=== PATIENT | male | born 1945 | race Caucasian/White ===

== ENCOUNTER 2022-11-01 09:11 | Emergency (ER) | payer BC, OTHER ==
[2022-11-01 09:26] VITALS: BP 152/86; PULSE 109; RESP 18; TEMP 98; BMI 23.5
[2022-11-01] MEDS ORDERED: LIDOCAINE 5% TOPICAL PATCH TP ONE (09:47)
[2022-11-01] MEDS ORDERED: METHOCARBAMOL 500 MG TABLET PO ONE (09:47)
[2022-11-01] MEDS ORDERED: KETOROLAC TROMETHAMINE 30 MG/1 ML VIAL IM ONE (09:47)
[2022-11-01] MEDS ORDERED: KETOROLAC TROMETHAMINE 30 MG/1 ML VIAL ONE (10:02)
[2022-11-01] MEDS ORDERED: LIDOCAINE 5% TOPICAL PATCH ONE (10:02)
[2022-11-01] MEDS ORDERED: METHOCARBAMOL 500 MG TABLET ONE (10:02)
[2022-11-01] MEDS ORDERED: ONDANSETRON 4 MG/2 ML VIAL IVPUSH ONE (13:52)
[2022-11-01] MEDS ORDERED: ONDANSETRON *ODT* 4 MG TABLET SL ONE (14:12)
[2022-11-01] MEDS ORDERED: ONDANSETRON *ODT* 4 MG TABLET ONE (14:22)
[2022-11-01] MEDS ORDERED: LIDOCAINE PATCH REMOVAL MC ONE (22:00)
== END 2022-11-01 18:03 | disposition home or self-care (01) ==
LOC: JER 09:11
PROC: 3E0233Z Introduction of Anti-inflammatory into Muscle, Percutaneous Approach (ICD-10-PCS; principal; 2022-11-01)
DX: M54.50 Low back pain, unspecified (principal); G89.29 Other chronic pain
CPT/HCPCS: 72131-TC; 96372; 99284-25; Q0162

== ENCOUNTER 2022-11-10 07:10 | Emergency (ER) | payer BC, OTHER ==
[2022-11-10] MEDS ORDERED: LIDOCAINE 5% TOPICAL PATCH TP ONE (07:20)
[2022-11-10] MEDS ORDERED: KETOROLAC TROMETHAMINE 30 MG/1 ML VIAL IM ONE (07:26)
[2022-11-10] MEDS ORDERED: KETOROLAC TROMETHAMINE 15 MG/ML VIAL IM ONE ×2 (07:37→16:28)
[2022-11-10 07:43] VITALS: BMI 23.5
[2022-11-10] MEDS ORDERED: LIDOCAINE 5% TOPICAL PATCH ONE (08:21)
[2022-11-10] MEDS ORDERED: KETOROLAC TROMETHAMINE 15 MG/ML VIAL ONE ×2 (08:21→16:31)
[2022-11-10 09:55] LABS: BASO % 0.3 % (0-2.0); EOS % 0.6 % (0-4.5); HEMATOCRIT 44.8 % (35.4-49); HEMOGLOBIN 14.9 GM/dL (11.7-16.9); LYMPH % 7.9 % (8-40); MCH 30.5 pg (25.7-33.7); MCHC 33.3 g/dl (32.0-35.9); MEAN CELL VOLUME 91.7 fl (80-96); MEAN PLT VOLUME 8.6 fl (7.5-11.1); MONO % 6.2 % (3.8-10.2); PLATELET COUNT 411 10^3/uL (134-434); RBC 4.88 M/mm3 (4.00-5.60); RDW 13.4 % (11.9-15.9); WHITE BLOOD COUNT 12.8 K/mm3 (4.0-10.0)
[2022-11-10] MEDS ORDERED: ACETAMINOPHEN 1000 MG/100 ML BAG IVPB ONE (10:01)
[2022-11-10] MEDS ORDERED: morphine CARPU-JECT 2 MG/1 ML DISP.SYRIN IVPUSH ONE (10:02)
[2022-11-10 10:12] LABS: CALCIUM 9.9 mg/dL (8.5-10.1)
[2022-11-10 10:13] LABS: ALBUMIN 3.7 g/dl (3.4-5.0); BLOOD UREA NITROGEN 17.6 mg/dL (7-18)
[2022-11-10 10:16] LABS: CREATININE 0.8 mg/dL (0.55-1.3)
[2022-11-10 10:17] LABS: TOT PROT 7.2 g/dl (6.4-8.2)
[2022-11-10 10:34] LABS: BILIRUBIN,TOTAL 0.2 mg/dL (0.2-1)
[2022-11-10] MEDS ORDERED: ACETAMINOPHEN INJECTION 100 ML IVPB ONE (10:56)
[2022-11-10 15:00] VITALS: RESP 20
[2022-11-10 17:40] VITALS: BP 140/90; PULSE 104; TEMP 98.9
[2022-11-10] MEDS ORDERED: LIDOCAINE PATCH REMOVAL MC ONE (22:00)
== END 2022-11-10 17:52 ==
LOC: JER 07:10
PROC: 3E033NZ Introduction of Analgesics, Hypnotics, Sedatives into Peripheral Vein, Percutaneous Approach (ICD-10-PCS; principal; 2022-11-10)
PROC: 3E0233Z Introduction of Anti-inflammatory into Muscle, Percutaneous Approach (ICD-10-PCS; 2022-11-10)
PROC: 3E0233Z Introduction of Anti-inflammatory into Muscle, Percutaneous Approach (ICD-10-PCS; 2022-11-10)
PROC: 3E033NZ Introduction of Analgesics, Hypnotics, Sedatives into Peripheral Vein, Percutaneous Approach (ICD-10-PCS; 2022-11-10)
DX: M54.50 Low back pain, unspecified (principal); Z11.52 Encounter for screening for COVID-19
CPT/HCPCS: 36415; 80053; 85025; 96372; 96374; 96375; 99284-25; C9803-CS; U0003; U0005

== ENCOUNTER 2022-11-13 03:31 | Inpatient (IN) | payer BC ==
[2022-11-13] MEDS ORDERED: LIDOCAINE 5% TOPICAL PATCH TP ONE (04:33)
[2022-11-13] MEDS ORDERED: KETOROLAC TROMETHAMINE 15 MG/ML VIAL IVPUSH ONE (04:35)
[2022-11-13] MEDS ORDERED: KETOROLAC TROMETHAMINE 15 MG/ML VIAL ONE ×2 (04:53→12:28)
[2022-11-13] MEDS ORDERED: LIDOCAINE 5% TOPICAL PATCH ONE (04:53)
[2022-11-13 05:41] LABS: BASO % 0.5 % (0-2.0); EOS % 1.3 % (0-4.5); HEMATOCRIT 44.2 % (35.4-49); LYMPH % 10.9 % (8-40); MCH 31.7 pg (25.7-33.7); MEAN CELL VOLUME 93.1 fl (80-96); MEAN PLT VOLUME 8.9 fl (7.5-11.1); MONO % 7.2 % (3.8-10.2); NEUT % 80.1 % (42.8-82.8); PLATELET COUNT 465 10^3/uL (134-434); RBC 4.75 M/mm3 (4.00-5.60); RDW 13.6 % (11.9-15.9); WHITE BLOOD COUNT 12.2 K/mm3 (4.0-10.0)
[2022-11-13] MEDS ORDERED: ACETAMINOPHEN 325 MG TABLET (FP) PO PRN (05:41)
[2022-11-13 05:54] LABS: CHLORIDE 105 mmol/L (98-107); SODIUM 134 mmol/L (136-145)
[2022-11-13 05:56] LABS: ALBUMIN 3.3 g/dl (3.4-5.0); CALCIUM 9.5 mg/dL (8.5-10.1)
[2022-11-13 05:57] LABS: BLOOD UREA NITROGEN 14.8 mg/dL (7-18); CO2 29 mmol/L (21-32); GLUCOSE,RANDOM 111 mg/dL (74-106)
[2022-11-13 06:00] LABS: CREATININE 0.7 mg/dL (0.55-1.3)
[2022-11-13 06:01] LABS: BILIRUBIN,TOTAL 0.4 mg/dL (0.2-1); TOT PROT 7.2 g/dl (6.4-8.2)
[2022-11-13 06:02] LABS: ALK PHOS 109 U/L (45-117)
[2022-11-13] MEDS ORDERED: morphine CARPU-JECT 4 MG/1 ML DISP.SYRIN IVPUSH ONE (06:05)
[2022-11-13] MEDS ORDERED: morphine SULFATE 4 MG/ML VIAL ONE (06:06)
[2022-11-13 06:29] LABS: ANION GAP 0 MMOL/L (8-16); SGOT/AST 107 U/L (15-37); SGPT/ALT 33 U/L (13-61)
[2022-11-13 08:37] LABS: CALCIUM 9.4 mg/dL (8.5-10.1)
[2022-11-13 08:38] LABS: ALBUMIN 3.3 g/dl (3.4-5.0); BLOOD UREA NITROGEN 15.6 mg/dL (7-18)
[2022-11-13 08:41] LABS: CREATININE 0.7 mg/dL (0.55-1.3)
[2022-11-13 08:42] LABS: BILIRUBIN,TOTAL 0.3 mg/dL (0.2-1)
[2022-11-13 08:43] LABS: TOT PROT 6.3 g/dl (6.4-8.2)
[2022-11-13] MEDS ORDERED: KETOROLAC TROMETHAMINE 15 MG/ML VIAL IVPUSH PRN (10:50)
[2022-11-13] MEDS ORDERED: GABAPENTIN 100 MG CAPSULE ONE (12:28)
[2022-11-13] MEDS: GABAPENTIN 100 MG CAPSULE PO SCH ×2 (12:31→21:39)
[2022-11-13] MEDS ORDERED: GABAPENTIN 100 MG CAPSULE PO SCH (14:00)
[2022-11-13 17:59] VITALS: BMI 23.0
[2022-11-13] MEDS: oxyCODONE HCL 5 MG TABLET PO PRN ×2 (18:04→22:05)
[2022-11-13] MEDS: MELATONIN 5 MG TABLETS PO PRN (21:42)
[2022-11-14] MEDS: oxyCODONE HCL 5 MG TABLET PO PRN ×4 (03:44→21:26)
[2022-11-14] MEDS: GABAPENTIN 100 MG CAPSULE PO SCH ×3 (06:50→23:30)
[2022-11-14] MEDS: MAGNESIUM HYDROX 2400MG/30ML ORAL SUSPENSION 30 ML CUP PO PRN (10:55)
[2022-11-14] MEDS: FINASTERIDE 5 MG TABLET (FP) PO SCH (10:56)
[2022-11-14] MEDS: traZODone HCL 50 MG TABLET (FP) PO SCH ×2 (10:56→23:30)
[2022-11-14] MEDS: MULTIVITAMINS THER W-MINERALS COMBO TABLET (FP) PO SCH (10:56)
[2022-11-14] MEDS: ARIPiprazole 5 MG TABLET PO SCH (10:56)
[2022-11-14] MEDS: VENLAFAXINE HCL 75 MG E.R. CAPSULES PO SCH (10:57)
[2022-11-14] MEDS: PANTOPRAZOLE 20 MG TABLET PO SCH (10:58)
[2022-11-14] MEDS ORDERED: morphine SULFATE 4 MG/ML VIAL IVPUSH ONE (22:31)
[2022-11-14] MEDS: ZOLPIDEM TARTRATE 5 MG TABLET PO SCH (23:30)
[2022-11-14] MEDS: MELATONIN 5 MG TABLETS PO PRN (23:30)
[2022-11-15] MEDS ORDERED: TRIMETHOBENZAMIDE HCL 200MG/2ML INJ IM ONE (00:58)
[2022-11-15] MEDS: oxyCODONE HCL 5 MG TABLET PO PRN ×4 (03:09→22:31)
[2022-11-15] MEDS: GABAPENTIN 100 MG CAPSULE PO SCH (05:37)
[2022-11-15 09:11] LABS: BASO % 0.5 % (0-2.0); EOS % 1.6 % (0-4.5); HEMATOCRIT 40.4 % (35.4-49); HEMOGLOBIN 13.3 GM/dL (11.7-16.9); LYMPH % 9.4 % (8-40); MCH 30.2 pg (25.7-33.7); MCHC 32.9 g/dl (32.0-35.9); MEAN PLT VOLUME 8.4 fl (7.5-11.1); MONO % 9.3 % (3.8-10.2); NEUT % 79.2 % (42.8-82.8); PLATELET COUNT 397 10^3/uL (134-434); RBC 4.39 M/mm3 (4.00-5.60); RDW 13.4 % (11.9-15.9)
[2022-11-15] MEDS ORDERED: morphine SULFATE 4 MG/ML VIAL IM ONE (09:15)
[2022-11-15 09:22] LABS: CALCIUM 8.7 mg/dL (8.5-10.1)
[2022-11-15 09:23] LABS: ALBUMIN 2.9 g/dl (3.4-5.0); BLOOD UREA NITROGEN 15.5 mg/dL (7-18)
[2022-11-15 09:26] LABS: CREATININE 0.7 mg/dL (0.55-1.3)
[2022-11-15 09:28] LABS: BILIRUBIN,TOTAL 0.5 mg/dL (0.2-1); TOT PROT 5.6 g/dl (6.4-8.2)
[2022-11-15] MEDS: traZODone HCL 50 MG TABLET (FP) PO SCH ×2 (10:07→22:31)
[2022-11-15] MEDS: MULTIVITAMINS THER W-MINERALS COMBO TABLET (FP) PO SCH (10:07)
[2022-11-15] MEDS: FINASTERIDE 5 MG TABLET (FP) PO SCH (10:07)
[2022-11-15] MEDS: ARIPiprazole 5 MG TABLET PO SCH (10:07)
[2022-11-15] MEDS: PANTOPRAZOLE 20 MG TABLET PO SCH (10:07)
[2022-11-15] MEDS: MAGNESIUM HYDROX 2400MG/30ML ORAL SUSPENSION 30 ML CUP PO PRN (10:07)
[2022-11-15] MEDS: VENLAFAXINE HCL 75 MG E.R. CAPSULES PO SCH (10:07)
[2022-11-15] MEDS: ACETAMINOPHEN 500 MG TABLET (FP) PO SCH ×2 (13:35→19:45)
[2022-11-15] MEDS: GABAPENTIN 300 MG CAPSULE PO SCH ×2 (13:36→22:31)
[2022-11-15] MEDS ORDERED: ACETAMINOPHEN 500 MG TABLET (FP) PO SCH (14:00)
[2022-11-15] MEDS: ZOLPIDEM TARTRATE 5 MG TABLET PO SCH (22:30)
[2022-11-16] MEDS: ACETAMINOPHEN 500 MG TABLET (FP) PO SCH ×4 (03:12→21:09)
[2022-11-16] MEDS: GABAPENTIN 300 MG CAPSULE PO SCH ×3 (06:19→21:11)
[2022-11-16] MEDS: ARIPiprazole 5 MG TABLET PO SCH (09:37)
[2022-11-16] MEDS: VENLAFAXINE HCL 75 MG E.R. CAPSULES PO SCH (09:37)
[2022-11-16] MEDS: MULTIVITAMINS THER W-MINERALS COMBO TABLET (FP) PO SCH (09:37)
[2022-11-16] MEDS: FINASTERIDE 5 MG TABLET (FP) PO SCH (09:37)
[2022-11-16] MEDS: PANTOPRAZOLE 20 MG TABLET PO SCH (09:38)
[2022-11-16] MEDS: MAGNESIUM HYDROX 2400MG/30ML ORAL SUSPENSION 30 ML CUP PO PRN (09:38)
[2022-11-16] MEDS: traZODone HCL 50 MG TABLET (FP) PO SCH ×2 (09:38→21:10)
[2022-11-16] MEDS: oxyCODONE HCL 5 MG TABLET PO PRN ×4 (09:45→23:06)
[2022-11-16] MEDS ORDERED: morphine CARPU-JECT 2 MG/1 ML DISP.SYRIN IM PRN (12:01)
[2022-11-16] MEDS: POLYETHYLENE GLYCOL (HEALTHYLAX) 3350 17 GM PACKET PO SCH ×2 (13:07→21:12)
[2022-11-16] MEDS: ZOLPIDEM TARTRATE 5 MG TABLET PO SCH (21:10)
[2022-11-17] MEDS: ACETAMINOPHEN 500 MG TABLET (FP) PO SCH ×4 (03:10→20:32)
[2022-11-17] MEDS: GABAPENTIN 300 MG CAPSULE PO SCH ×3 (07:29→21:14)
[2022-11-17] MEDS: oxyCODONE HCL 5 MG TABLET PO PRN ×2 (07:29→16:23)
[2022-11-17] MEDS: MULTIVITAMINS THER W-MINERALS COMBO TABLET (FP) PO SCH (09:13)
[2022-11-17] MEDS: POLYETHYLENE GLYCOL (HEALTHYLAX) 3350 17 GM PACKET PO SCH ×2 (09:13→21:15)
[2022-11-17] MEDS: ARIPiprazole 5 MG TABLET PO SCH (09:13)
[2022-11-17] MEDS: VENLAFAXINE HCL 75 MG E.R. CAPSULES PO SCH (09:14)
[2022-11-17] MEDS: PANTOPRAZOLE 20 MG TABLET PO SCH (09:14)
[2022-11-17] MEDS: FINASTERIDE 5 MG TABLET (FP) PO SCH (09:14)
[2022-11-17] MEDS: traZODone HCL 50 MG TABLET (FP) PO SCH ×2 (09:14→21:14)
[2022-11-17] MEDS: ZOLPIDEM TARTRATE 5 MG TABLET PO SCH (21:14)
[2022-11-17] MEDS: LIDOCAINE 5% TOPICAL PATCH TP SCH (22:23)
[2022-11-17] MEDS: LIDOCAINE PATCH REMOVAL MC SCH (22:24)
[2022-11-18] MEDS: ACETAMINOPHEN 500 MG TABLET (FP) PO SCH ×4 (02:13→20:22)
[2022-11-18] MEDS: GABAPENTIN 300 MG CAPSULE PO SCH ×3 (06:02→22:08)
[2022-11-18] MEDS: traZODone HCL 50 MG TABLET (FP) PO SCH ×2 (09:19→22:08)
[2022-11-18] MEDS: ARIPiprazole 5 MG TABLET PO SCH (09:20)
[2022-11-18] MEDS: FINASTERIDE 5 MG TABLET (FP) PO SCH (09:20)
[2022-11-18] MEDS: POLYETHYLENE GLYCOL (HEALTHYLAX) 3350 17 GM PACKET PO SCH ×2 (09:20→22:08)
[2022-11-18] MEDS: MULTIVITAMINS THER W-MINERALS COMBO TABLET (FP) PO SCH (09:20)
[2022-11-18] MEDS: PANTOPRAZOLE 20 MG TABLET PO SCH (09:20)
[2022-11-18] MEDS: LIDOCAINE 5% TOPICAL PATCH TP SCH (09:20)
[2022-11-18] MEDS: VENLAFAXINE HCL 75 MG E.R. CAPSULES PO SCH (09:20)
[2022-11-18] MEDS: MAGNESIUM HYDROX 2400MG/30ML ORAL SUSPENSION 30 ML CUP PO PRN (09:23)
[2022-11-18] MEDS ORDERED: SODIUM PHOSPHATE/NA BIPHOS 133 ML ENEMA RC ONE (13:30)
[2022-11-18] MEDS: DOCUSATE SODIUM 100 MG CAPSULE (FP) PO SCH ×2 (13:34→22:08)
[2022-11-18] MEDS: BACLOFEN 10 MG TABLET (FP) PO SCH ×2 (13:34→22:08)
[2022-11-18] MEDS: NAPROXEN 250 MG TABLET PO SCH ×2 (13:36→22:08)
[2022-11-18] MEDS: ZOLPIDEM TARTRATE 5 MG TABLET PO SCH (22:08)
[2022-11-18] MEDS: LIDOCAINE PATCH REMOVAL MC SCH (22:10)
[2022-11-19] MEDS: ACETAMINOPHEN 500 MG TABLET (FP) PO SCH ×4 (02:57→20:07)
[2022-11-19] MEDS: BACLOFEN 10 MG TABLET (FP) PO SCH ×3 (05:25→22:26)
[2022-11-19] MEDS: DOCUSATE SODIUM 100 MG CAPSULE (FP) PO SCH ×3 (05:26→22:26)
[2022-11-19] MEDS: GABAPENTIN 300 MG CAPSULE PO SCH ×3 (05:26→22:26)
[2022-11-19 09:13] LABS: BASO % 0.3 % (0-2.0); EOS % 2.8 % (0-4.5); HEMATOCRIT 40.3 % (35.4-49); HEMOGLOBIN 13.5 GM/dL (11.7-16.9); LYMPH % 8.8 % (8-40); MCH 30.9 pg (25.7-33.7); MCHC 33.4 g/dl (32.0-35.9); MEAN CELL VOLUME 92.6 fl (80-96); MONO % 6.7 % (3.8-10.2); NEUT % 81.4 % (42.8-82.8); PLATELET COUNT 438 10^3/uL (134-434); RBC 4.35 M/mm3 (4.00-5.60); RDW 13.4 % (11.9-15.9); WHITE BLOOD COUNT 12.4 K/mm3 (4.0-10.0)
[2022-11-19] MEDS: VENLAFAXINE HCL 75 MG E.R. CAPSULES PO SCH (09:23)
[2022-11-19] MEDS: FINASTERIDE 5 MG TABLET (FP) PO SCH (09:23)
[2022-11-19] MEDS: PANTOPRAZOLE 20 MG TABLET PO SCH (09:24)
[2022-11-19] MEDS: traZODone HCL 50 MG TABLET (FP) PO SCH ×2 (09:24→22:26)
[2022-11-19] MEDS: MULTIVITAMINS THER W-MINERALS COMBO TABLET (FP) PO SCH (09:24)
[2022-11-19] MEDS: POLYETHYLENE GLYCOL (HEALTHYLAX) 3350 17 GM PACKET PO SCH ×2 (09:25→22:26)
[2022-11-19] MEDS: LIDOCAINE 5% TOPICAL PATCH TP SCH (09:25)
[2022-11-19 09:46] LABS: BLOOD UREA NITROGEN 19.1 mg/dL (7-18); CALCIUM 9.1 mg/dL (8.5-10.1)
[2022-11-19 09:49] LABS: CREATININE 0.8 mg/dL (0.55-1.3)
[2022-11-19] MEDS: ARIPiprazole 5 MG TABLET PO SCH (11:07)
[2022-11-19] MEDS: NAPROXEN 250 MG TABLET PO SCH ×2 (11:08→22:27)
[2022-11-19] MEDS: ZOLPIDEM TARTRATE 5 MG TABLET PO SCH (22:26)
[2022-11-19] MEDS: LIDOCAINE PATCH REMOVAL MC SCH (22:27)
[2022-11-20] MEDS: ACETAMINOPHEN 500 MG TABLET (FP) PO SCH ×4 (01:27→21:15)
[2022-11-20] MEDS: GABAPENTIN 300 MG CAPSULE PO SCH ×3 (05:44→21:18)
[2022-11-20] MEDS: BACLOFEN 10 MG TABLET (FP) PO SCH ×3 (05:44→21:16)
[2022-11-20] MEDS: DOCUSATE SODIUM 100 MG CAPSULE (FP) PO SCH ×4 (05:44→21:27)
[2022-11-20] MEDS: VENLAFAXINE HCL 75 MG E.R. CAPSULES PO SCH (10:07)
[2022-11-20] MEDS: traZODone HCL 50 MG TABLET (FP) PO SCH ×2 (10:13→21:16)
[2022-11-20] MEDS: MULTIVITAMINS THER W-MINERALS COMBO TABLET (FP) PO SCH (10:13)
[2022-11-20] MEDS: FINASTERIDE 5 MG TABLET (FP) PO SCH (10:13)
[2022-11-20] MEDS: PANTOPRAZOLE 20 MG TABLET PO SCH (10:13)
[2022-11-20] MEDS: LIDOCAINE 5% TOPICAL PATCH TP SCH (10:31)
[2022-11-20] MEDS: POLYETHYLENE GLYCOL (HEALTHYLAX) 3350 17 GM PACKET PO SCH ×2 (10:31→21:17)
[2022-11-20] MEDS: ARIPiprazole 5 MG TABLET PO SCH (10:32)
[2022-11-20] MEDS: NAPROXEN 250 MG TABLET PO SCH ×2 (10:33→21:16)
[2022-11-20] MEDS: oxyCODONE HCL 5 MG TABLET PO PRN ×2 (13:17→18:31)
[2022-11-20] MEDS: LIDOCAINE PATCH REMOVAL MC SCH (21:17)
[2022-11-20] MEDS: ZOLPIDEM TARTRATE 5 MG TABLET PO SCH (21:17)
[2022-11-21] MEDS: ACETAMINOPHEN 500 MG TABLET (FP) PO SCH ×4 (02:59→20:36)
[2022-11-21] MEDS: BACLOFEN 10 MG TABLET (FP) PO SCH ×3 (05:25→21:08)
[2022-11-21] MEDS: GABAPENTIN 300 MG CAPSULE PO SCH ×3 (05:25→21:08)
[2022-11-21] MEDS: DOCUSATE SODIUM 100 MG CAPSULE (FP) PO SCH ×3 (05:26→21:08)
[2022-11-21 08:54] LABS: BASO % 0.4 % (0-2.0); EOS % 1.7 % (0-4.5); HEMATOCRIT 34.3 % (35.4-49); HEMOGLOBIN 11.6 GM/dL (11.7-16.9); LYMPH % 9.6 % (8-40); MCH 30.8 pg (25.7-33.7); MCHC 33.7 g/dl (32.0-35.9); MEAN CELL VOLUME 91.5 fl (80-96); MEAN PLT VOLUME 8.2 fl (7.5-11.1); MONO % 10.5 % (3.8-10.2); NEUT % 77.8 % (42.8-82.8); PLATELET COUNT 395 10^3/uL (134-434); RBC 3.75 M/mm3 (4.00-5.60); RDW 13.5 % (11.9-15.9); WHITE BLOOD COUNT 13.4 K/mm3 (4.0-10.0)
[2022-11-21 08:55] LABS: BLOOD UREA NITROGEN 13.5 mg/dL (7-18); CALCIUM 8.6 mg/dL (8.5-10.1)
[2022-11-21 08:58] LABS: CREATININE 0.6 mg/dL (0.55-1.3)
[2022-11-21] MEDS: ARIPiprazole 5 MG TABLET PO SCH (11:33)
[2022-11-21] MEDS: NAPROXEN 250 MG TABLET PO SCH ×2 (11:35→21:06)
[2022-11-21] MEDS: FINASTERIDE 5 MG TABLET (FP) PO SCH (11:36)
[2022-11-21] MEDS: MULTIVITAMINS THER W-MINERALS COMBO TABLET (FP) PO SCH (11:37)
[2022-11-21] MEDS: VENLAFAXINE HCL 75 MG E.R. CAPSULES PO SCH (11:38)
[2022-11-21] MEDS: traZODone HCL 50 MG TABLET (FP) PO SCH ×2 (11:38→21:08)
[2022-11-21] MEDS: LIDOCAINE 5% TOPICAL PATCH TP SCH (11:39)
[2022-11-21] MEDS: POLYETHYLENE GLYCOL (HEALTHYLAX) 3350 17 GM PACKET PO SCH ×2 (11:39→21:08)
[2022-11-21] MEDS: PANTOPRAZOLE 20 MG TABLET PO SCH (11:39)
[2022-11-21] MEDS: oxyCODONE HCL 5 MG TABLET PO PRN ×2 (14:11→19:38)
[2022-11-21] MEDS: LIDOCAINE PATCH REMOVAL MC SCH (21:08)
[2022-11-21] MEDS: ZOLPIDEM TARTRATE 5 MG TABLET PO SCH (21:08)
[2022-11-22] MEDS: ACETAMINOPHEN 500 MG TABLET (FP) PO SCH ×4 (01:58→20:11)
[2022-11-22] MEDS: oxyCODONE HCL 5 MG TABLET PO PRN ×4 (03:55→23:32)
[2022-11-22] MEDS: GABAPENTIN 300 MG CAPSULE PO SCH ×3 (05:50→21:04)
[2022-11-22] MEDS: DOCUSATE SODIUM 100 MG CAPSULE (FP) PO SCH ×4 (05:50→21:09)
[2022-11-22] MEDS: BACLOFEN 10 MG TABLET (FP) PO SCH ×3 (05:50→21:04)
[2022-11-22] MEDS: PANTOPRAZOLE 20 MG TABLET PO SCH (09:00)
[2022-11-22] MEDS: VENLAFAXINE HCL 75 MG E.R. CAPSULES PO SCH (09:00)
[2022-11-22] MEDS: POLYETHYLENE GLYCOL (HEALTHYLAX) 3350 17 GM PACKET PO SCH ×2 (09:00→21:04)
[2022-11-22] MEDS: traZODone HCL 50 MG TABLET (FP) PO SCH ×2 (09:00→21:03)
[2022-11-22] MEDS: LIDOCAINE 5% TOPICAL PATCH TP SCH (09:02)
[2022-11-22] MEDS: ARIPiprazole 5 MG TABLET PO SCH (09:04)
[2022-11-22] MEDS: NAPROXEN 250 MG TABLET PO SCH ×2 (09:04→21:04)
[2022-11-22] MEDS: MULTIVITAMINS THER W-MINERALS COMBO TABLET (FP) PO SCH (09:06)
[2022-11-22] MEDS: FINASTERIDE 5 MG TABLET (FP) PO SCH (09:06)
[2022-11-22] MEDS: LIDOCAINE PATCH REMOVAL MC SCH (21:04)
[2022-11-22] MEDS: ZOLPIDEM TARTRATE 5 MG TABLET PO SCH (21:04)
[2022-11-22] MEDS: MELATONIN 5 MG TABLETS PO PRN (23:32)
[2022-11-23] MEDS: ACETAMINOPHEN 500 MG TABLET (FP) PO SCH ×4 (01:31→21:36)
[2022-11-23] MEDS: BACLOFEN 10 MG TABLET (FP) PO SCH ×3 (05:29→21:35)
[2022-11-23] MEDS: GABAPENTIN 300 MG CAPSULE PO SCH ×3 (05:29→21:36)
[2022-11-23] MEDS: DOCUSATE SODIUM 100 MG CAPSULE (FP) PO SCH ×3 (05:31→21:36)
[2022-11-23] MEDS: oxyCODONE HCL 5 MG TABLET PO PRN (08:56)
[2022-11-23] MEDS: NAPROXEN 250 MG TABLET PO SCH ×2 (09:32→21:35)
[2022-11-23] MEDS: traZODone HCL 50 MG TABLET (FP) PO SCH ×2 (09:33→21:35)
[2022-11-23] MEDS: PANTOPRAZOLE 20 MG TABLET PO SCH (09:33)
[2022-11-23] MEDS: POLYETHYLENE GLYCOL (HEALTHYLAX) 3350 17 GM PACKET PO SCH ×2 (09:41→21:36)
[2022-11-23] MEDS: MULTIVITAMINS THER W-MINERALS COMBO TABLET (FP) PO SCH (09:41)
[2022-11-23] MEDS: FINASTERIDE 5 MG TABLET (FP) PO SCH (09:41)
[2022-11-23] MEDS: VENLAFAXINE HCL 75 MG E.R. CAPSULES PO SCH (09:41)
[2022-11-23] MEDS: ARIPiprazole 5 MG TABLET PO SCH (09:48)
[2022-11-23] MEDS: LIDOCAINE 5% TOPICAL PATCH TP SCH (09:58)
[2022-11-23 11:22] VITALS: RESP 18
[2022-11-23] MEDS: ZOLPIDEM TARTRATE 5 MG TABLET PO SCH (21:35)
[2022-11-23] MEDS: LIDOCAINE PATCH REMOVAL MC SCH (21:38)
[2022-11-24] MEDS: ACETAMINOPHEN 500 MG TABLET (FP) PO SCH ×4 (01:25→21:31)
[2022-11-24] MEDS: oxyCODONE HCL 5 MG TABLET PO PRN ×3 (01:29→18:45)
[2022-11-24] MEDS: ACETAMINOPHEN 325 MG TABLET (FP) PO PRN ×2 (01:29→09:39)
[2022-11-24] MEDS: MELATONIN 5 MG TABLETS PO PRN (01:30)
[2022-11-24] MEDS: DOCUSATE SODIUM 100 MG CAPSULE (FP) PO SCH ×3 (05:53→21:30)
[2022-11-24] MEDS: GABAPENTIN 300 MG CAPSULE PO SCH ×3 (05:53→21:31)
[2022-11-24] MEDS: BACLOFEN 10 MG TABLET (FP) PO SCH ×3 (05:53→21:31)
[2022-11-24] MEDS: MULTIVITAMINS THER W-MINERALS COMBO TABLET (FP) PO SCH (09:41)
[2022-11-24] MEDS: traZODone HCL 50 MG TABLET (FP) PO SCH ×2 (09:41→21:30)
[2022-11-24] MEDS: PANTOPRAZOLE 20 MG TABLET PO SCH (09:41)
[2022-11-24] MEDS: NAPROXEN 250 MG TABLET PO SCH ×2 (09:41→21:30)
[2022-11-24] MEDS: FINASTERIDE 5 MG TABLET (FP) PO SCH (09:41)
[2022-11-24] MEDS: VENLAFAXINE HCL 75 MG E.R. CAPSULES PO SCH (09:41)
[2022-11-24] MEDS: LIDOCAINE 5% TOPICAL PATCH TP SCH (09:42)
[2022-11-24] MEDS: POLYETHYLENE GLYCOL (HEALTHYLAX) 3350 17 GM PACKET PO SCH ×2 (09:43→21:31)
[2022-11-24] MEDS: ARIPiprazole 5 MG TABLET PO SCH (09:44)
[2022-11-24] MEDS: ZOLPIDEM TARTRATE 5 MG TABLET PO SCH (21:30)
[2022-11-24] MEDS: LIDOCAINE PATCH REMOVAL MC SCH (21:32)
[2022-11-25] MEDS: ACETAMINOPHEN 500 MG TABLET (FP) PO SCH ×4 (02:10→21:25)
[2022-11-25] MEDS: DOCUSATE SODIUM 100 MG CAPSULE (FP) PO SCH ×3 (05:51→21:31)
[2022-11-25] MEDS: GABAPENTIN 300 MG CAPSULE PO SCH ×3 (05:51→21:31)
[2022-11-25] MEDS: BACLOFEN 10 MG TABLET (FP) PO SCH ×3 (05:51→21:31)
[2022-11-25] MEDS: oxyCODONE HCL 5 MG TABLET PO PRN ×2 (06:38→20:31)
[2022-11-25] MEDS: FINASTERIDE 5 MG TABLET (FP) PO SCH (09:07)
[2022-11-25] MEDS: traZODone HCL 50 MG TABLET (FP) PO SCH ×2 (09:07→21:31)
[2022-11-25] MEDS: NAPROXEN 250 MG TABLET PO SCH ×2 (09:07→21:30)
[2022-11-25] MEDS: ARIPiprazole 5 MG TABLET PO SCH (09:07)
[2022-11-25] MEDS: PANTOPRAZOLE 20 MG TABLET PO SCH (09:08)
[2022-11-25] MEDS: VENLAFAXINE HCL 75 MG E.R. CAPSULES PO SCH (09:08)
[2022-11-25] MEDS: POLYETHYLENE GLYCOL (HEALTHYLAX) 3350 17 GM PACKET PO SCH ×2 (09:08→21:31)
[2022-11-25] MEDS: LIDOCAINE 5% TOPICAL PATCH TP SCH (09:08)
[2022-11-25] MEDS: MULTIVITAMINS THER W-MINERALS COMBO TABLET (FP) PO SCH (09:08)
[2022-11-25 09:25] LABS: BASO % 0.7 % (0-2.0); EOS % 4.2 % (0-4.5); HEMATOCRIT 35.6 % (35.4-49); HEMOGLOBIN 12.1 GM/dL (11.7-16.9); MCH 31.1 pg (25.7-33.7); MCHC 33.9 g/dl (32.0-35.9); MEAN CELL VOLUME 91.7 fl (80-96); MEAN PLT VOLUME 7.9 fl (7.5-11.1); MONO % 7.7 % (3.8-10.2); NEUT % 75.4 % (42.8-82.8); PLATELET COUNT 461 10^3/uL (134-434); RBC 3.88 M/mm3 (4.00-5.60); RDW 13.4 % (11.9-15.9)
[2022-11-25 09:35] LABS: BLOOD UREA NITROGEN 15.4 mg/dL (7-18); CALCIUM 8.7 mg/dL (8.5-10.1)
[2022-11-25 09:38] LABS: CREATININE 0.6 mg/dL (0.55-1.3)
[2022-11-25] MEDS ORDERED: ONDANSETRON 8 MG TABLET (FP) PO PRN (12:29)
[2022-11-25] MEDS: FAMOTIDINE 20 MG TABLET PO SCH (13:02)
[2022-11-25] MEDS ORDERED: BENZOCAINE/MENTH/CETYLPYRD CL 1 EACH LOZENGE MM PRN (14:00)
[2022-11-25 14:44] LABS: ALBUMIN 2.3 g/dl (3.4-5.0)
[2022-11-25 14:49] LABS: BILIRUBIN,TOTAL 0.2 mg/dL (0.2-1); TOT PROT 5.6 g/dl (6.4-8.2)
[2022-11-25] MEDS: ACETAMINOPHEN 325 MG TABLET (FP) PO PRN (20:32)
[2022-11-25] MEDS: ZOLPIDEM TARTRATE 5 MG TABLET PO SCH (21:31)
[2022-11-25] MEDS: LIDOCAINE PATCH REMOVAL MC SCH (21:31)
[2022-11-26] MEDS: ACETAMINOPHEN 500 MG TABLET (FP) PO SCH ×4 (02:21→20:00)
[2022-11-26] MEDS: MELATONIN 5 MG TABLETS PO PRN (02:21)
[2022-11-26] MEDS: ONDANSETRON 4 MG TABLET PO PRN ×2 (02:22→23:36)
[2022-11-26] MEDS: GABAPENTIN 300 MG CAPSULE PO SCH ×2 (06:40→13:24)
[2022-11-26] MEDS: BACLOFEN 10 MG TABLET (FP) PO SCH ×2 (06:40→13:24)
[2022-11-26] MEDS: DOCUSATE SODIUM 100 MG CAPSULE (FP) PO SCH ×3 (06:40→21:15)
[2022-11-26] MEDS: NAPROXEN 250 MG TABLET PO SCH ×2 (09:29→21:18)
[2022-11-26] MEDS: LIDOCAINE 5% TOPICAL PATCH TP SCH (09:29)
[2022-11-26] MEDS: traZODone HCL 50 MG TABLET (FP) PO SCH ×2 (09:30→21:15)
[2022-11-26] MEDS: FINASTERIDE 5 MG TABLET (FP) PO SCH (09:30)
[2022-11-26] MEDS: MULTIVITAMINS THER W-MINERALS COMBO TABLET (FP) PO SCH (09:30)
[2022-11-26] MEDS: POLYETHYLENE GLYCOL (HEALTHYLAX) 3350 17 GM PACKET PO SCH ×2 (09:30→21:15)
[2022-11-26] MEDS: FAMOTIDINE 20 MG TABLET PO SCH (09:30)
[2022-11-26] MEDS: PANTOPRAZOLE 20 MG TABLET PO SCH (09:30)
[2022-11-26] MEDS: ARIPiprazole 5 MG TABLET PO SCH (09:31)
[2022-11-26] MEDS ORDERED: SODIUM CHLORIDE 1,000 ML IV STA (15:27)
[2022-11-26] MEDS: oxyCODONE HCL 5 MG TABLET PO PRN (16:45)
[2022-11-26] MEDS ORDERED: SODIUM CHLORIDE 1,000 ML IV SCH (18:00)
[2022-11-26] MEDS: SODIUM CHLORIDE 1,000 ML IV SCH (19:00)
[2022-11-26] MEDS: ZOLPIDEM TARTRATE 5 MG TABLET PO SCH (21:15)
[2022-11-26] MEDS: LIDOCAINE PATCH REMOVAL MC SCH (23:00)
[2022-11-27] MEDS: MELATONIN 5 MG TABLETS PO PRN (00:49)
[2022-11-27] MEDS: oxyCODONE HCL 5 MG TABLET PO PRN ×3 (00:50→21:09)
[2022-11-27] MEDS: ACETAMINOPHEN 325 MG TABLET (FP) PO PRN (00:50)
[2022-11-27] MEDS: ACETAMINOPHEN 500 MG TABLET (FP) PO SCH ×4 (03:32→20:05)
[2022-11-27] MEDS: DOCUSATE SODIUM 100 MG CAPSULE (FP) PO SCH ×4 (05:54→21:10)
[2022-11-27] MEDS: MULTIVITAMINS THER W-MINERALS COMBO TABLET (FP) PO SCH (10:03)
[2022-11-27] MEDS: PANTOPRAZOLE 20 MG TABLET PO SCH (10:03)
[2022-11-27] MEDS: traZODone HCL 50 MG TABLET (FP) PO SCH ×2 (10:03→21:10)
[2022-11-27] MEDS: FINASTERIDE 5 MG TABLET (FP) PO SCH (10:03)
[2022-11-27] MEDS: BACLOFEN 10 MG TABLET (FP) PO SCH ×2 (10:04→21:10)
[2022-11-27] MEDS: LIDOCAINE 5% TOPICAL PATCH TP SCH (10:05)
[2022-11-27] MEDS: POLYETHYLENE GLYCOL (HEALTHYLAX) 3350 17 GM PACKET PO SCH ×2 (10:05→21:11)
[2022-11-27] MEDS: ARIPiprazole 5 MG TABLET PO SCH (10:05)
[2022-11-27] MEDS: ENOXAPARIN NA (PORCINE) 40 MG/0.4 ML DISP.SYRIN SQ SCH ×2 (10:06→10:35)
[2022-11-27] MEDS: NAPROXEN 250 MG TABLET PO SCH ×2 (10:06→21:13)
[2022-11-27] MEDS: FAMOTIDINE 20 MG TABLET PO SCH (10:07)
[2022-11-27] MEDS: ONDANSETRON *ODT* 4 MG TABLET SL PRN ×2 (11:03→21:09)
[2022-11-27] MEDS: GABAPENTIN 100 MG CAPSULE PO SCH ×2 (13:11→21:10)
[2022-11-27] MEDS: FLUTICASONE PROP 0.05% 16 GM NASAL SPRAY NS SCH (14:40)
[2022-11-27] MEDS: ZOLPIDEM TARTRATE 5 MG TABLET PO SCH (21:10)
[2022-11-27] MEDS: LIDOCAINE PATCH REMOVAL MC SCH (21:11)
[2022-11-28] MEDS: MELATONIN 5 MG TABLETS PO PRN (02:00)
[2022-11-28] MEDS: ACETAMINOPHEN 500 MG TABLET (FP) PO SCH ×3 (02:00→13:16)
[2022-11-28] MEDS: DOCUSATE SODIUM 100 MG CAPSULE (FP) PO SCH ×2 (06:22→14:59)
[2022-11-28] MEDS: oxyCODONE HCL 5 MG TABLET PO PRN ×2 (06:22→15:11)
[2022-11-28] MEDS: GABAPENTIN 100 MG CAPSULE PO SCH ×2 (06:22→14:59)
[2022-11-28] MEDS: ACETAMINOPHEN 325 MG TABLET (FP) PO PRN (06:23)
[2022-11-28 08:41] LABS: BASO % 0.6 % (0-2.0); EOS % 3.7 % (0-4.5); HEMATOCRIT 35.7 % (35.4-49); HEMOGLOBIN 11.9 GM/dL (11.7-16.9); LYMPH % 11.5 % (8-40); MCH 30.3 pg (25.7-33.7); MCHC 33.4 g/dl (32.0-35.9); MEAN CELL VOLUME 90.6 fl (80-96); MEAN PLT VOLUME 7.3 fl (7.5-11.1); MONO % 8.6 % (3.8-10.2); NEUT % 75.6 % (42.8-82.8); PLATELET COUNT 505 10^3/uL (134-434); RBC 3.94 M/mm3 (4.00-5.60); RDW 13.2 % (11.9-15.9); WHITE BLOOD COUNT 11.5 K/mm3 (4.0-10.0)
[2022-11-28] MEDS: SODIUM CHLORIDE 1,000 ML IV SCH (08:53)
[2022-11-28] MEDS: MULTIVITAMINS THER W-MINERALS COMBO TABLET (FP) PO SCH (09:02)
[2022-11-28] MEDS: BACLOFEN 10 MG TABLET (FP) PO SCH (09:02)
[2022-11-28] MEDS: PANTOPRAZOLE 20 MG TABLET PO SCH (09:03)
[2022-11-28] MEDS: FAMOTIDINE 20 MG TABLET PO SCH (09:03)
[2022-11-28] MEDS: FINASTERIDE 5 MG TABLET (FP) PO SCH (09:03)
[2022-11-28] MEDS: traZODone HCL 50 MG TABLET (FP) PO SCH (09:03)
[2022-11-28] MEDS: POLYETHYLENE GLYCOL (HEALTHYLAX) 3350 17 GM PACKET PO SCH (09:04)
[2022-11-28] MEDS: ARIPiprazole 5 MG TABLET PO SCH (09:04)
[2022-11-28] MEDS: ENOXAPARIN NA (PORCINE) 40 MG/0.4 ML DISP.SYRIN SQ SCH (09:13)
[2022-11-28] MEDS: LIDOCAINE 5% TOPICAL PATCH TP SCH (09:14)
[2022-11-28] MEDS: NAPROXEN 250 MG TABLET PO SCH (09:14)
[2022-11-28 09:18] LABS: ALBUMIN 2.6 g/dl (3.4-5.0); BLOOD UREA NITROGEN 14.7 mg/dL (7-18); CALCIUM 9.1 mg/dL (8.5-10.1)
[2022-11-28 09:21] LABS: CREATININE 0.6 mg/dL (0.55-1.3)
[2022-11-28 09:22] LABS: TOT PROT 5.9 g/dl (6.4-8.2)
[2022-11-28 09:23] LABS: BILIRUBIN,TOTAL 0.3 mg/dL (0.2-1)
[2022-11-28] MEDS: FLUTICASONE PROP 0.05% 16 GM NASAL SPRAY NS SCH (10:11)
[2022-11-28] MEDS: ONDANSETRON *ODT* 4 MG TABLET SL PRN (10:44)
[2022-11-28 11:29] LABS: EPI CELLS 1 /uL (0-25.1); HYALINE CASTS 3 /uL (0-3.1); URINE APPEARANCE CLOUDY; URINE BACTERIA 8923 /uL (0-1359); URINE BILIRUBIN NEGATIVE (NEGATIVE); URINE COLOR YELLOW; URINE GLUCOSE (UA) NEGATIVE (NEGATIVE); URINE KETONE NEGATIVE (NEGATIVE); URINE LEUK ESTERASE 2+ (NEGATIVE); URINE NITRITE NEGATIVE (NEGATIVE); URINE PROTEIN NEGATIVE (NEGATIVE); URINE RBC 108 /uL (0-23.9); URINE WBC 694 /uL (0-25.8)
[2022-11-28] MEDS ORDERED: CEFUROXIME AXETIL 500 MG TABLET PO ONE (14:46)
[2022-11-28 18:13] VITALS: BP 139/82; PULSE 86; TEMP 98.7
[2022-11-28] MEDS ORDERED: CEFUROXIME AXETIL 500 MG TABLET PO SCH (22:00)
== END 2022-11-28 19:41 | DRG 552 ==
LOC: JER 03:31 → JERBED 05:13 → J8W 16:23 → OBSVTOIN 11-16 13:46 → J6S 11-19 00:01
PROVIDERS: ADMIT Internal Medicine; ATTEND Internal Medicine
DX: S32.010A Wedge compression fracture of first lumbar vertebra, initial encounter for closed fracture (principal); N39.0 Urinary tract infection, site not specified; E03.9 Hypothyroidism, unspecified; K21.9 Gastro-esophageal reflux disease without esophagitis; N40.0 Benign prostatic hyperplasia without lower urinary tract symptoms; F31.9 Bipolar disorder, unspecified; F41.8 Other specified anxiety disorders; M51.36 Other intervertebral disc degeneration, lumbar region; I95.89 Other hypotension; R11.0 Nausea; R07.0 Pain in throat; X58.XXXA Exposure to other specified factors, initial encounter; Y93.89 Activity, other specified; Y92.89 Other specified places as the place of occurrence of the external cause; Y99.8 Other external cause status
CPT/HCPCS: 0241U-QW; 36415; 71046-TC-FY; 72148-TC; 80048; 80053; 81003; 83690; 85025; 87070; 87086; 87186; 93005; 93010; 97116-GP; 97161-GP; 99285-25; C9803-CS; G0378; J0475; Q0162; U0003; U0005